=== PATIENT | male | born 1950 | race Caucasian/White ===

== ENCOUNTER 2018-12-22 19:16 | Inpatient (IN) | payer MEDICARE, OTHER ==
[2018-12-22 20:28] LABS: Amphetamine Screen,Urine Not Detected (NotDetected); Barbiturate Screen,Urine Not Detected (NotDetected); Benzodiazepines Screen,Urine Not Detected (NotDetected); Cocaine Screen,Urine Not Detected (NotDetected); Methadone Screen, Urine Not Detected (NotDetected); Opiate Screen,Urine Not Detected (NotDetected); Oxycodone Screen, Urine Not Detected (NotDetected); Phencyclidine Screen,Urine Not Detected (NotDetected); Tricyclic Antidepressant,Urine Not Detected (NotDetected); Urn Cannabinoid Scrn Not Detected (NotDetected)
[2018-12-22 20:39] LABS: Appearance,Urine Clear (Clear); Bilirubin,Urine Negative (Negative); Blood,Urine Small (Negative); Color,Urine Light Yellow; Glucose,Urine (UA) Negative (Negative); Ketones,Urine Negative (Negative); Leukocyte Esterase,Urine Negative (Negative); Nitrite,Urine Negative (Negative); Protein,Urine Negative (Negative); RBC,Urine 1 /hpf (0-5); Specific Gravity,Urine 1.004 (1.001-1.035); Urobilinogen,Urine <2.0 mg/dL (<2.0); WBC,Urine <1 /hpf (0-5)
[2018-12-22 20:49] LABS: Basophils % (A) 0 %; Eosinophils % (A) 1 %; Lymphocytes # (A) 3.1 k/uL (1.0-4.8); Lymphocytes % (A) 45 %; MCH 31.1 pg (25.0-35.0); MCHC 35.4 g/dL (31.0-37.0); Mean Platelet Volume 5.9; Monocytes # (A) 0.5 k/uL (0-1.0); Monocytes % (A) 7 %; Neutrophils # (A) 3.1 k/uL (1.3-7.7); Neutrophils % (A) 45 %; Platelet Count 123 k/uL (150-450); RBC 5.46 m/uL (4.30-5.90); RDW 13.5 % (11.5-15.5)
[2018-12-22 21:02] LABS: ALT 53 U/L (21-72); AST 83 U/L (17-59); Acetaminophen <10.0 ug/mL; African American GFR (CKD) >90 (>60 ml/min/1.73 sqM); Albumin 4.4 g/dL (3.5-5.0); Alkaline Phosphatase 96 U/L (38-126); Anion Gap 11 mmol/L; Blood Urea Nitrogen 13 mg/dL (9-20); Calcium 9.3 mg/dL (8.4-10.2); Carbon Dioxide 30 mmol/L (22-30); Chloride 106 mmol/L (98-107); Glucose 111 mg/dL (74-99); Potassium 4.2 mmol/L (3.5-5.1); Salicylate <1.0 mg/dL; Sodium 147 mmol/L (137-145); Total Bilirubin 0.6 mg/dL (0.2-1.3)
[2018-12-22 21:05] LABS: Alcohol 284 mg/dL
[2018-12-22] MEDS ORDERED: NALOXONE 0.4 MG/ML 1 ML VIAL IV PRN (21:38)
--- NOTE | 2018-12-22 21:38 | ED ---
General Adult HPI - General Chief complaint: Psychiatric Symptoms Stated complaint: Mental Health Time Seen by Provider: 12/22/18 19:20 Source: patient Mode of arrival: ambulatory - History of Present Illness Initial comments: The patient is a 68-year-old male who presents to the emergency room with suicidal ideations and alcohol intoxication. The patient reports that he drinks approximately 15 beers per day and has for the past year. He also reports to long standing depression with suicidal ideations. Did state that he had a suicide attempt in 2013. He should be on Cymbalta however has not taken his medications in several years. He has not followed up with a primary care doctor or seen a therapist. His friends became concerned and brought him into the emergency department. They state that human the patient isn't drinking that he is suicidal. He denies any other substance abuse. Does smoke tobacco. Denies any suicide attempts at this time. There are no other alleviating, precipitating or modifying factors - Related Data Home Medications Medication Instructions Recorded Confirmed No Known Home Medications 12/22/18 12/24/18 Allergies Allergy/AdvReac Type Severity Reaction Status Date / Time aspirin Allergy Rash/Hives Verified 12/24/18 21:31 NSAIDS (Non-Steroidal Allergy Anaphylaxis Verified 12/24/18 21:31 Anti-Inflamma Review of Systems ROS Statement: Those systems with pertinent positive or pertinent negative responses have been documented in the HPI. ROS Other: All systems not noted in ROS Statement are negative. Past Medical History Past Medical History: No Reported History History of Any Multi-Drug Resistant Organisms: None Reported Past Surgical History: No Surgical Hx Reported Past Psychological History: Anxiety, Bipolar, Depression Smoking Status: Never smoker Past Alcohol Use History: Abuse, Daily Past Drug Use History: None Reported - Past Family History Father Family Medical History: Liver Disease General Exam General appearance: alert, in no apparent distress, appears intoxicated Head exam: Present: atraumatic, normocephalic, normal inspection Eye exam: Present: normal appearance, PERRL, EOMI. Absent: scleral icterus, conjunctival injection, periorbital swelling ENT exam: Present: normal exam, mucous membranes moist Neck exam: Present: normal inspection. Absent: tenderness, meningismus, lymphadenopathy Respiratory exam: Present: normal lung sounds bilaterally. Absent: respiratory distress, wheezes, rales, rhonchi, stridor Cardiovascular Exam: Present: normal rhythm, tachycardia, normal heart sounds. Absent: systolic murmur, diastolic murmur, rubs, gallop, clicks GI/Abdominal exam: Present: soft, normal bowel sounds. Absent: distended, tenderness, guarding, rebound, rigid Extremities exam: Present: normal inspection, full ROM, normal capillary refill. Absent: tenderness, pedal edema, joint swelling, calf tenderness Back exam: Present: normal inspection Neurological exam: Present: alert, oriented X3, CN II-XII intact Psychiatric exam: Present: depressed, suicidal ideation Skin exam: Present: warm, dry, intact, normal color. Absent: rash Course Vital Signs 12/22/18 19:19 Temperature 98.1 F Pulse Rate 105 H Respiratory 18 Rate Blood Pressure 141/87 O2 Sat by Pulse 96 Oximetry Medical Decision Making - Medical Decision Making Upon arrival the patient was placed into room 12. A thorough history and physical exam is performed. I did recommend laboratory studies. CMP shows a sodium of 147. Small blood in the urine. Blood alcohol is 284. Because of the patient's markedly elevated blood alcohol level I did recommend hospital admission for to the patient did agree. The patient will be admitted sound physicians group. I will consult psychiatry to see the patient. The patient remained in stable condition was transported for - Lab Data Result diagrams: 12/24/18 06:18 12/24/18 06:18 Lab Results 12/22/18 12/22/18 12/22/18 Range/Units 19:55 20:21 20:21 WBC 7.0 (3.8-10.6) k/uL RBC 5.46 (4.30-5.90) m/uL Hgb 17.0 (13.0-17.5) gm/dL Hct 48.0 (39.0-53.0) % MCV 88.0 (80.0-100.0) fL MCH 31.1 (25.0-35.0) pg MCHC 35.4 (31.0-37.0) g/dL RDW 13.5 (11.5-15.5) % Plt Count 123 L (150-450) k/uL Neutrophils % 45 % Lymphocytes % 45 % Monocytes % 7 % Eosinophils % 1 % Basophils % 0 % Neutrophils # 3.1 (1.3-7.7) k/uL Lymphocytes # 3.1 (1.0-4.8) k/uL Monocytes # 0.5 (0-1.0) k/uL Eosinophils # 0.0 (0-0.7) k/uL Basophils # 0.0 (0-0.2) k/uL Sodium 147 H (137-145) mmol/L Potassium 4.2 (3.5-5.1) mmol/L Chloride 106 (98-107) mmol/L Carbon Dioxide 30 (22-30) mmol/L Anion Gap 11 mmol/L BUN 13 (9-20) mg/dL Creatinine 0.78 (0.66-1.25) mg/dL Est GFR (CKD-EPI)AfAm >90 (>60 ml/min/1.73 sqM) Est GFR (CKD-EPI)NonAf >90 (>60 ml/min/1.73 sqM) Glucose 111 H (74-99) mg/dL Calcium 9.3 (8.4-10.2) mg/dL Total Bilirubin 0.6 (0.2-1.3) mg/dL AST 83 H (17-59) U/L ALT 53 (21-72) U/L Alkaline Phosphatase 96 (38-126) U/L Total Protein 8.0 (6.3-8.2) g/dL Albumin 4.4 (3.5-5.0) g/dL Urine Color Light Yellow Urine Appearance Clear (Clear) Urine pH 7.0 (5.0-8.0) Ur Specific [place] 1.004 (1.001-1.035) Urine Protein Negative (Negative) Urine Glucose (UA) Negative (Negative) Urine Ketones Negative (Negative) Urine Blood Small H (Negative) Urine Nitrite Negative (Negative) Urine Bilirubin Negative (Negative) Urine Urobilinogen <2.0 (<2.0) mg/dL Ur Leukocyte Esterase Negative (Negative) Urine RBC 1 (0-5) /hpf Urine WBC <1 (0-5) /hpf Salicylates <1.0 mg/dL Urine Opiates Screen Not Detected (NotDetected) Ur Oxycodone Screen Not Detected (NotDetected) Urine Methadone Screen Not Detected (NotDetected) Ur Propoxyphene Screen Not Detected (NotDetected) Acetaminophen <10.0 ug/mL Ur Barbiturates Screen Not Detected (NotDetected) U Tricyclic Antidepress Not Detected (NotDetected) Ur Phencyclidine Scrn Not Detected (NotDetected) Ur Amphetamines Screen Not Detected (NotDetected) U Methamphetamines Scrn Not Detected (NotDetected) U Benzodiazepines Scrn Not Detected (NotDetected) Urine Cocaine Screen Not Detected (NotDetected) U Marijuana (THC) Screen Not Detected (NotDetected) Serum Alcohol 284 H* mg/dL 12/23/18 12/23/18 Range/Units 06:00 06:00 WBC 5.1 (3.8-10.6) k/uL RBC 4.95 (4.30-5.90) m/uL Hgb 15.1 (13.0-17.5) gm/dL Hct 45.1 (39.0-53.0) % MCV 91.0 (80.0-100.0) fL MCH 30.5 (25.0-35.0) pg MCHC 33.6 (31.0-37.0) g/dL RDW 13.7 (11.5-15.5) % Plt Count 105 L (150-450) k/uL Neutrophils % 49 % Lymphocytes % 40 % Monocytes % 7 % Eosinophils % 1 % Basophils % 0 % Neutrophils # 2.5 (1.3-7.7) k/uL Lymphocytes # 2.1 (1.0-4.8) k/uL Monocytes # 0.4 (0-1.0) k/uL Eosinophils # 0.0 (0-0.7) k/uL Basophils # 0.0 (0-0.2) k/uL Sodium 144 (137-145) mmol/L Potassium 4.6 (3.5-5.1) mmol/L Chloride 106 (98-107) mmol/L Carbon Dioxide 30 (22-30) mmol/L Anion Gap 8 mmol/L BUN 15 (9-20) mg/dL Creatinine 0.88 (0.66-1.25) mg/dL Est GFR (CKD-EPI)AfAm >90 (>60 ml/min/1.73 sqM) Est GFR (CKD-EPI)NonAf 88 (>60 ml/min/1.73 sqM) Glucose 91 (74-99) mg/dL Calcium 8.4 (8.4-10.2) mg/dL Total Bilirubin (0.2-1.3) mg/dL AST (17-59) U/L ALT (21-72) U/L Alkaline Phosphatase (38-126) U/L Total Protein (6.3-8.2) g/dL Albumin (3.5-5.0) g/dL Urine Color Urine Appearance (Clear) Urine pH (5.0-8.0) Ur Specific [place] (1.001-1.035) Urine Protein (Negative) Urine Glucose (UA) (Negative) Urine Ketones (Negative) Urine Blood (Negative) Urine Nitrite (Negative) Urine Bilirubin (Negative) Urine Urobilinogen (<2.0) mg/dL Ur Leukocyte Esterase (Negative) Urine RBC (0-5) /hpf Urine WBC (0-5) /hpf Salicylates mg/dL Urine Opiates Screen (NotDetected) Ur Oxycodone Screen (NotDetected) Urine Methadone Screen (NotDetected) Ur Propoxyphene Screen (NotDetected) Acetaminophen ug/mL Ur Barbiturates Screen (NotDetected) U Tricyclic Antidepress (NotDetected) Ur Phencyclidine Scrn (NotDetected) Ur Amphetamines Screen (NotDetected) U Methamphetamines Scrn (NotDetected) U Benzodiazepines Scrn (NotDetected) Urine Cocaine Screen (NotDetected) U Marijuana (THC) Screen (NotDetected) Serum Alcohol 71 mg/dL Disposition Clinical Impression: Depression, Suicidal ideation, Alcohol intoxication Disposition: ADMITTED IP TO THIS [facility] Condition: Stable Is patient prescribed a controlled substance at d/c from ED?: No Decision to Admit Reason: Admit from EC Decision Date: 12/22/18 Decision Time: 21:38
[2018-12-22] MEDS ORDERED: THIAMINE 100 MG/ML 2 ML VIAL IM STA (21:42)
[2018-12-22] MEDS ORDERED: LORazepam 2 MG/ML INJ IV PRN ×2 (21:42)
[2018-12-22] MEDS ORDERED: ACETAMINOPHEN TAB 325 MG TAB PO STA (22:12)
[2018-12-22] MEDS: SODIUM CHLORIDE 0.9% 1,000 ML IV SCH (22:20)
[2018-12-22] MEDS: LORazepam 2 MG/ML INJ IV PRN (22:38)
--- NOTE | 2018-12-23 00:10 | P.HPIM ---
History of Present Illness H&P Date: 12/22/18 The patient is a 68-year-old male with a past medical history of depression and anxiety, history of chronic alcoholism with episodes of remission in sobriety recently began drinking approximately a week ago after his latest period of remission lasting approximately 5 months. The patient reports that he's been drinking about 24 beers daily over the last several days. The patient reports previous suicide attempt in 2013 where he slit his wrists but was found by a friend. The patient reports previously being well-controlled on his SSRI Paxil and was taking 20 mg daily up until a year ago. The patient reports previously drinking 2/5 of vodka but has not drank any hard liquor since his most recent relapse. The patient was apparently brought here by his friends as a was concerned about his behavior, Apparently the patient has not been sleeping well on sporadically cut all of his here off today. Patient has no specific precipitating or alleviating factors to his current presentation. He reports that he was recently at his AA meeting a couple days ago. Patient reports history of alcohol withdrawal or he becomes increasingly anxious tremulous, he denies any history of withdrawal seizures. The patient also complains of a history of constipation and reports to have a bowel movement every 4 days. The patient denies any specific plan for suicide and is denying any active suicidal ideation to me. In the ER the patient had a comprehensive workup serum alcohol level was 284, platelets were 123, serum sodium 147. The patient was given thiamine and IV fluids and recommended for admission for acute alcohol intoxication Review of Systems pertinent positives per HPI all other review of small is otherwise negative Past Medical History Past Medical History: No Reported History History of Any Multi-Drug Resistant Organisms: None Reported Past Surgical History: No Surgical Hx Reported Past Psychological History: Anxiety, Bipolar, Depression Smoking Status: Never smoker Past Alcohol Use History: Abuse, Daily Past Drug Use History: None Reported - Past Family History Father Family Medical History: Liver Disease Medications and Allergies Home Medications Medication Instructions Recorded Confirmed Type No Known Home Medications 12/22/18 12/22/18 History Allergies Allergy/AdvReac Type Severity Reaction Status Date / Time NSAIDS (Non-Steroidal Allergy Anaphylaxis Verified 12/22/18 20:06 Anti-Inflamma Physical Exam Vitals: Vital Signs Temp Pulse Pulse Resp BP BP Pulse Ox 12/22/18 22:35 98.0 F 98 15 138/54 98 12/22/18 19:19 98.1 F 105 H 18 141/87 96 Intake and Output 12/22/18 12/22/18 12/23/18 14:59 22:59 06:59 Other: Weight 73.028 kg Constitutional: No acute distress, conversant, pleasant Eyes: Anicteric sclerae, moist conjunctiva, no lid-lag, PERRLA ENMT: NC/AT,Oropharynx clear, no erythema, exudates Neck:Supple, FROM, no masses, or JVD, No carotid bruits; No thyromegaly Lungs: Clear to auscultation, Clear to percussion, Normal respiratory effort, no accessory muscle use Cardiovascular: Heart regular in rate and rhythm, No murmurs, gallops, or rubs no peripheral edema Abdominal: Soft Nontender, nom distended, no guarding, no rebound or rigidity, Normoactive bowel sounds No hepatomegaly, No splenomegaly, No palpable mass No abdominal wall hernia noted Skin: Normal temperature, tone, texture, turgor, No induration No subcutaneous nodules, No rash, lesions, No ulcers Extremities:No digital cyanosis No clubbing, Pedal pulses intact and symmetrical Radial pulses intact and symmetrical Normal gait and station, No calf tenderness Psychiatric: Alert and oriented to person, place and time, flat affect, tangential speech Neuro: Muscles Strength 5/5 in all 4 extremities, Sensation to light touch grossly present throughout, Cranial nerves II-XII grossly intact. No focal sensory deficits Results CBC & Chem 7: 12/22/18 20:21 12/22/18 20:21 Labs: Abnormal Lab Results - Last 24 Hours (Table) 12/22/18 12/22/18 12/22/18 Range/Units 19:55 20:21 20:21 Plt Count 123 L (150-450) k/uL Sodium 147 H (137-145) mmol/L Glucose 111 H (74-99) mg/dL AST 83 H (17-59) U/L Urine Blood Small H (Negative) Serum Alcohol 284 H* mg/dL Thrombosis Risk Factor Assmnt - Choose All That Apply Each Risk Factor Represents 2 Points: Age 61-74 years Thrombosis Risk Factor Assessment Total Risk Factor Score: 2 Thrombosis Risk Factor Assessment Level: Low Risk Assessment and Plan (1) Alcohol dependence with acute alcoholic intoxication Current Visit: Yes Status: Acute Code(s): F10.229 - ALCOHOL DEPENDENCE WITH INTOXICATION, UNSPECIFIED SNOMED Code(s): 556729743 (2) Depression Current Visit: Yes Status: Acute Code(s): F32.9 - MAJOR DEPRESSIVE DISORDER, SINGLE EPISODE, UNSPECIFIED SNOMED Code(s): 42019387 (3) Suicidal ideation Current Visit: Yes Status: Acute Code(s): R45.851 - SUICIDAL IDEATIONS SNOMED Code(s): 9093814 (4) Anxiety Current Visit: Yes Status: Acute Code(s): F41.9 - ANXIETY DISORDER, UNSPECIFIED SNOMED Code(s): 87335257 (5) Thrombocytopenia Current Visit: Yes Status: Acute Code(s): D69.6 - THROMBOCYTOPENIA, UNSPECIFIED SNOMED Code(s): 737825454 (6) Constipation Current Visit: Yes Status: Acute Code(s): K59.00 - CONSTIPATION, UNSPECIFIED SNOMED Code(s): 39373740 Plan: Patient is placed on observation anticipate a less than 2 midnight stay with alcohol intoxication the setting of recent relapse into chronic alcoholism, presented with a serum alcohol level of 291. The patient is placed on telemetry with concern for impending withdrawal, She is placed on symptom triggered CIWA withdrawal protocol with Ativan PRN, continued on thiamine. From the ER there is documentation about suicidal ideation however the patient is denying this to me, psych consultation has been requested from the ER. The patient started on MiraLAX for constipation, he is noted to have thrombocytopenia which will monitor. We'll continue to follow his clinical course. CODE STATUS: Full code Discussed plan of care with: Patient Anticipated discharge: 1-[address]: Home versus psychiatric unit Prophylaxis: SCDs and Protonix Time with Patient: Greater than 30
[2018-12-23] MEDS: LORazepam 2 MG/ML INJ IV PRN ×5 (01:10→21:32)
[2018-12-23 07:14] LABS: Basophils % (A) 0 %; Eosinophils % (A) 1 %; HCT 45.1 % (39.0-53.0); HGB 15.1 gm/dL (13.0-17.5); Lymphocytes # (A) 2.1 k/uL (1.0-4.8); Lymphocytes % (A) 40 %; MCH 30.5 pg (25.0-35.0); MCHC 33.6 g/dL (31.0-37.0); Mean Platelet Volume 6.4; Monocytes # (A) 0.4 k/uL (0-1.0); Monocytes % (A) 7 %; Neutrophils # (A) 2.5 k/uL (1.3-7.7); Neutrophils % (A) 49 %; Platelet Count 105 k/uL (150-450); RBC 4.95 m/uL (4.30-5.90); RDW 13.7 % (11.5-15.5); WBC 5.1 k/uL (3.8-10.6)
[2018-12-23 07:25] LABS: African American GFR (CKD) >90 (>60 ml/min/1.73 sqM); Alcohol 71 mg/dL; Anion Gap 8 mmol/L; Blood Urea Nitrogen 15 mg/dL (9-20); Calcium 8.4 mg/dL (8.4-10.2); Carbon Dioxide 30 mmol/L (22-30); Chloride 106 mmol/L (98-107); Glucose 91 mg/dL (74-99); Potassium 4.6 mmol/L (3.5-5.1); Sodium 144 mmol/L (137-145)
[2018-12-23] MEDS: PANTOPRAZOLE 40 MG TABLET PO SCH (07:42)
[2018-12-23] MEDS: SODIUM CHLORIDE 0.9% 1,000 ML IV SCH ×2 (07:42→16:49)
[2018-12-23] MEDS: POLYETHYLENE GLYCOL 3350 17 GM POWD.PACK PO SCH (07:42)
[2018-12-23] MEDS: THIAMINE 100 MG TAB PO SCH (15:42)
--- NOTE | 2018-12-23 16:22 | P.PN ---
Subjective Progress Note Date: 12/23/18 Principal diagnosis: Alcohol intoxication Patient is a 68-year-old male to past medical history of alcoholism, anxiety and depression, and alcoholic liver disease who presented to the emergency department with his friends due to concerns for depression and alcohol intoxication. In the emergency department he underwent an extensive evaluation. On arrival he was tachycardic with a pulse of 105 but vital signs were otherwise within normal limits. Initial laboratory analysis showed an elevated AST at 83, mild dehydration with sodium of 147, and thrombocytopenia platelets of 123. He was noted to have a blood alcohol level of 284. He was started on IV fluids and was admitted for further monitoring and psychiatric evaluation. He was started on CIWA protocol. He was already requiring doses of Ativan by the morning of 12/23. Patient seen and examined at bedside. He reports that he has been struggling with alcohol addiction for 25 years. He reports that he fell off the wagon approximately 5 months ago. He has been drinking 15-20 beers daily. He is having some difficulty concentrating and fidgeting however he reports a hisotry of severe EOTH withdrawal resulting in confusion. Denies seizures. He reports that he had been planning on going to [place] and not sure how he ended up at the hospital. Objective - Vital Signs Vital signs: Vital Signs Temp 97.9 F 12/23/18 15:31 Pulse 88 12/23/18 15:31 Resp 15 12/23/18 15:31 BP 134/68 12/23/18 15:31 Pulse Ox 95 12/23/18 15:31 Intake & Output 12/22/18 12/23/18 12/23/18 18:59 06:59 18:59 Intake Total 800 Balance 800 Weight 73.028 kg Intake: IV 800 Sodium Chloride 0.9% 1, 800 000 ml @ 100 mls/hr IV . Q10H [facility] Rx#:[id number] Other: Voiding Method Toilet - Exam General: non toxic, mild distress, appears at stated age, disheveled Derm: warm, dry Head: atraumatic, normocephalic, symmetric Eyes: EOMI, no lid lag, anicteric sclera Mouth: no lip lesion, mucus membranes moist Cardiovascular: S1S2 reg, no murmur, positive posterior tibial pulse bilateral, Lungs: CTA bilateral, no rhonchi, no rales , no accessory muscle use Abdominal: soft, nontender to palpation, no guarding, no appreciable organomegaly Ext: no gross muscle atrophy, no edema, no contractures Neuro: CN II-XI grossly intact, no focal neuro deficits, no tremors, no asterixis Psych: Alert, oriented, appropriate affect , slowed thinking with difficulty concentrating - Labs CBC & Chem 7: 12/23/18 06:00 12/23/18 06:00 Labs: Abnormal Lab Results - Last 24 Hours (Table) 12/22/18 12/22/18 12/22/18 Range/Units 19:55 20:21 20:21 Plt Count 123 L (150-450) k/uL Sodium 147 H (137-145) mmol/L Glucose 111 H (74-99) mg/dL AST 83 H (17-59) U/L Urine Blood Small H (Negative) Serum Alcohol 284 H* mg/dL 12/23/18 Range/Units 06:00 Plt Count 105 L (150-450) k/uL Sodium (137-145) mmol/L Glucose (74-99) mg/dL AST (17-59) U/L Urine Blood (Negative) Serum Alcohol mg/dL Assessment and Plan Assessment: Alcohol withdrawal -With an acute alcohol intoxication on arrival -Continue with the eye WA protocol -And scheduled Librium -Thiamine, folic acid supplementation -Social work consult Depression and anxiety -At this time patient denies suicidal ideation. He does report feelings of hopelessness. He states that he was doing much better when he was on Paxil but took himself off of Paxil that's when he began drinking again. -Continue with food safety coordinator and await psychiatry recs Thrombocytopenia with mild AST elevation -Suspect secondary to chronic alcohol use -Outpatient evaluation once away from alcohol Mild dehydration with hypernatremia -IV fluids -Encourage oral fluid intake DVT prophylaxis: SCDs Discussed with: patient, nursing Anticipated discharge: 2-[address]: home vs rehab A total of 25 minutes was spent on the care of this complex patient more than 50% of the time was spent in counseling and care coordination.
[2018-12-23] MEDS: MULTIVITAMINS, THERA 1 EACH TAB PO SCH (16:48)
[2018-12-23] MEDS: FOLIC ACID 1 MG TAB PO SCH (16:48)
[2018-12-24] MEDS: LORazepam 2 MG/ML INJ IV PRN ×2 (00:41→02:43)
[2018-12-24] MEDS: SODIUM CHLORIDE 0.9% 1,000 ML IV SCH (03:35)
[2018-12-24 07:42] LABS: HGB 14.2 gm/dL (13.0-17.5); MCHC 33.8 g/dL (31.0-37.0); MCV 91.6 fL (80.0-100.0); Mean Platelet Volume 6.2; RBC 4.58 m/uL (4.30-5.90); RDW 13.6 % (11.5-15.5); WBC 5.5 k/uL (3.8-10.6)
[2018-12-24] MEDS: FOLIC ACID 1 MG TAB PO SCH (07:46)
[2018-12-24] MEDS: PANTOPRAZOLE 40 MG TABLET PO SCH (07:46)
[2018-12-24] MEDS: MULTIVITAMINS, THERA 1 EACH TAB PO SCH (07:46)
[2018-12-24] MEDS: THIAMINE 100 MG TAB PO SCH (07:46)
[2018-12-24 07:49] VITALS: BP 131/77; PULSE 83; RESP 16; TEMP 97.5
[2018-12-24 07:51] LABS: ALT 45 U/L (21-72); AST 60 U/L (17-59); African American GFR (CKD) >90 (>60 ml/min/1.73 sqM); Albumin 3.3 g/dL (3.5-5.0); Alkaline Phosphatase 74 U/L (38-126); Anion Gap 4 mmol/L; Blood Urea Nitrogen 15 mg/dL (9-20); Calcium 8.7 mg/dL (8.4-10.2); Carbon Dioxide 30 mmol/L (22-30); Chloride 107 mmol/L (98-107); Glucose 102 mg/dL (74-99); Potassium 4.5 mmol/L (3.5-5.1); Sodium 141 mmol/L (137-145); Total Protein 6.6 g/dL (6.3-8.2)
[2018-12-24] MEDS: POLYETHYLENE GLYCOL 3350 17 GM POWD.PACK PO SCH (08:14)
[2018-12-24 08:37] LABS: Platelet Count 85 k/uL (150-450)
--- NOTE | 2018-12-24 20:07 | P.DS ---
Providers Date of admission: 12/23/18 13:36 Expected date of discharge: 12/24/18 Attending physician: Venancio Ruiz MD Consults: 12/22/18 21:40 Consult Physician Urgent Consulting Provider: Saran Bailey Consult Reason/Comments: acute suicidal ideations, depression Do you want consulting provider notified?: Yes Primary care physician: Yoli Samayoa Hospital Course: Discharge Diagnosis: Etoh withdrawal ETOH intoxication and abuse Thrombocytopenia Elevated liver enzymes Depression and anxiety Hypernatremia Dehydration Hospital Course: Patient is a 68-year-old male to past medical history of alcoholism, anxiety and depression, and alcoholic liver disease who presented to the emergency department with his friends due to concerns for depression and alcohol intoxication. In the emergency department he underwent an extensive evaluation. On arrival he was tachycardic with a pulse of 105 but vital signs were otherwise within normal limits. Initial laboratory analysis showed an elevated AST at 83, mild dehydration with sodium of 147, and thrombocytopenia platelets of 123. He was noted to have a blood alcohol level of 284. He was started on IV fluids and was admitted for further monitoring and psychiatric evaluation. He was started on CIWA protocol. He was already requiring doses of Ativan by the morning of 12/23. He has started on Librium. He had a rapid improvement in his alcohol withdrawal symptoms. He was seen by psychiatry and did not warrant inpatient psychiatric admission. On the morning of CIWA scale had dropped to 4. His hypernatremia and dehydration had resolved. In his liver enzymes had stabilized. He was requesting to be discharged home. He reports that he has friends are attempting to get him in to [facility] he was supposed to have an intake on either Monday or Monday. Initially had some confusion on the date but this was quickly improved. He did appear to be clear thinking was determined stable for discharge home. We attempted to contact friends for a ride, however his phone that her he had . He was provided a cab ride home. He was asked not to drive if he had received Librium earlier in the day. Patient seen and examined at bedside. He denies any difficulties with withdrawal symptoms. He denies any nausea, vomiting, shaking, tremors, or tactile sensations. He reports that his friends are in and get him in to [facility] either today or tomorrow. He reports that they called on Saturday. Patient initially was confused and thought that the day was Monday but then quickly reoriented to it being Monday. He reports that he has good support from his AA sponsor some other friends. He feels as though he is ready to be discharged home. Per nursing he was asking them if he was petitioned which he is not. I told him his been cleared by psychiatry. Patient appears to be clear thinking and medically is stable. He is asking to be discharge and he has been cleared by psychiatry. Patient discharge in stable condition. Vital signs reviewed and stable. General: non toxic, no distress, appears at stated age Derm: warm, dry Head: atraumatic, normocephalic, symmetric Eyes: EOMI, no lid lag, anicteric sclera Mouth: no lip lesion, mucus membranes moist Cardiovascular: S1S2 reg, no murmur, positive posterior tibial pulse bilateral, Lungs: CTA bilateral, no rhonchi, no rales , no accessory muscle use Abdominal: soft, nontender to palpation, no guarding, no appreciable organomegaly Ext: no gross muscle atrophy, no edema, no contractures Neuro: CN II-XI grossly intact, no focal neuro deficits Psych: Alert, oriented to person, hospital and situation- did not verify year, anxious appearing A total of 25 minutes of time were spent preparing this complex discharge summary . Patient Condition at Discharge: Stable Plan - Discharge Summary Discharge Rx Participant: Yes New Discharge Prescriptions: Continue No Known Home Medications Discharge Medication List No Known Home Medications 12/22/18 [History] Follow up Appointment(s)/Referral(s): Yoli Samayoa MD [Primary Care Provider] - 12/26/18 1:15 pm Patient Instructions/Handouts: Abuse of Alcohol (DC) Activity/Diet/Wound Care/Special Instructions: Activity: as tolerated Diet: regular Special Instructions: Abstain from alcohol Recommend repeat CBC in 2-4 weeks to follow-up on low platelets. Discharge Disposition: HOME SELF-CARE
== END 2018-12-24 11:57 | disposition home or self-care (01) | DRG 897 ==
LOC: EC 19:16 → 4SSUR 21:42 → OBSVTOIN 12-23 13:36
PROVIDERS: ADMIT Family Medicine; ATTEND Family Medicine
DX: F10.129 Alcohol abuse with intoxication, unspecified (principal); E87.0 Hyperosmolality and hypernatremia; R45.851 Suicidal ideations; D69.6 Thrombocytopenia, unspecified; E86.0 Dehydration; F17.200 Nicotine dependence, unspecified, uncomplicated; F41.9 Anxiety disorder, unspecified; K59.00 Constipation, unspecified; F32.9 Major depressive disorder, single episode, unspecified; K70.9 Alcoholic liver disease, unspecified; Z91.5 Personal history of self-harm; Z88.6 Allergy status to analgesic agent; Z83.79 Family history of other diseases of the digestive system; Y90.8 Blood alcohol level of 240 mg/100 ml or more
CPT/HCPCS: 36415; 80048; 80053; 80306; 80320; 80329; 81001; 82075; 83520; 85025; 85027; 96372; 99285

== ENCOUNTER 2018-12-24 20:18 | Inpatient (IN) | payer MEDICARE ==
--- NOTE | 2018-12-24 21:18 | ED ---
Psych HPI - General Chief Complaint: Psychiatric Symptoms Stated Complaint: Mental Health Time Seen by Provider: 12/24/18 21:03 Source: patient, police Mode of arrival: ambulatory - History of Present Illness Initial Comments: This patient is a 68-year-old man who presents with complaint that he has been feeling depressed and having thoughts of drowning himself in the river. Patient complains of having years of long-standing depression despite taking Paxil for about 7 years. He states that more more he is thinking of ending his life. Patient denies homicidal ideation. No hallucinations. MD Complaint: suicidal ideation, feels depressed -: year(s) Associated Psychiatric Symptoms: depression, suicidal ideation History of same: Yes Quality: constant Improves With: none Worsens With: none Associated Symptoms: denies other symptoms - Related Data Home Medications Medication Instructions Recorded Confirmed No Known Home Medications 12/22/18 12/24/18 Allergies Allergy/AdvReac Type Severity Reaction Status Date / Time aspirin Allergy Rash/Hives Verified 12/24/18 21:31 NSAIDS (Non-Steroidal Allergy Anaphylaxis Verified 12/24/18 21:31 Anti-Inflamma Review of Systems ROS Statement: Those systems with pertinent positive or pertinent negative responses have been documented in the HPI. ROS Other: All systems not noted in ROS Statement are negative. Constitutional: Denies: fever Respiratory: Denies: cough, dyspnea Cardiovascular: Denies: chest pain, palpitations Gastrointestinal: Denies: abdominal pain, vomiting, diarrhea Genitourinary: Denies: dysuria, hematuria Musculoskeletal: Denies: back pain Neurological: Denies: headache Psychiatric: Reports: depression, suicidal thoughts. Denies: auditory hallucinations, visual hallucinations, homicidal thoughts Past Medical History Past Medical History: No Reported History History of Any Multi-Drug Resistant Organisms: None Reported Past Surgical History: No Surgical Hx Reported Past Psychological History: Anxiety, Bipolar, Depression Smoking Status: Never smoker Past Alcohol Use History: Abuse, Daily Past Drug Use History: None Reported - Past Family History Father Family Medical History: Liver Disease General Exam Limitations: no limitations General appearance: alert, in no apparent distress Head exam: Present: atraumatic, normocephalic Eye exam: Present: normal appearance. Absent: scleral icterus, conjunctival injection Respiratory exam: Present: normal lung sounds bilaterally. Absent: respiratory distress, wheezes, rales, rhonchi, stridor Cardiovascular Exam: Present: regular rate, normal rhythm, normal heart sounds. Absent: systolic murmur, diastolic murmur, rubs, gallop GI/Abdominal exam: Present: soft. Absent: tenderness, guarding Neurological exam: Present: alert, oriented X3, normal gait Psychiatric exam: Present: depressed, suicidal ideation. Absent: agitated, anxious, flat affect, manic, homicidal ideation Skin exam: Present: warm, dry, intact, normal color. Absent: rash Course Vital Signs 12/24/18 20:19 Temperature 97.9 F Pulse Rate 114 H Respiratory 20 Rate Blood Pressure 139/83 O2 Sat by Pulse 96 Oximetry Medical Decision Making - Lab Data Lab Results 12/24/18 Range/Units 20:40 Urine Opiates Screen Not Detected (NotDetected) Ur Oxycodone Screen Not Detected (NotDetected) Urine Methadone Screen Not Detected (NotDetected) Ur Propoxyphene Screen Not Detected (NotDetected) Ur Barbiturates Screen Not Detected (NotDetected) U Tricyclic Antidepress Not Detected (NotDetected) Ur Phencyclidine Scrn Not Detected (NotDetected) Ur Amphetamines Screen Not Detected (NotDetected) U Methamphetamines Scrn Not Detected (NotDetected) U Benzodiazepines Scrn Detected H (NotDetected) Urine Cocaine Screen Not Detected (NotDetected) U Marijuana (THC) Screen Not Detected (NotDetected) Disposition Clinical Impression: Depression, Suicidal ideation Disposition: ADMITTED IP TO THIS [facility] Condition: Fair
[2018-12-24 21:43] LABS: Amphetamine Screen,Urine Not Detected (NotDetected); Barbiturate Screen,Urine Not Detected (NotDetected); Benzodiazepines Screen,Urine Detected (NotDetected); Cocaine Screen,Urine Not Detected (NotDetected); Methadone Screen, Urine Not Detected (NotDetected); Opiate Screen,Urine Not Detected (NotDetected); Oxycodone Screen, Urine Not Detected (NotDetected); Phencyclidine Screen,Urine Not Detected (NotDetected); Tricyclic Antidepressant,Urine Not Detected (NotDetected); Urn Cannabinoid Scrn Not Detected (NotDetected)
[2018-12-24] MEDS ORDERED: MAG HYDROX/AL HYDROX/SIMETH 30 ML CUP PO PRN (23:39)
[2018-12-24] MEDS ORDERED: ZIPRASIDONE 20 MG VIAL IM PRN (23:39)
[2018-12-24] MEDS ORDERED: MAGNESIUM HYDROXIDE 2,400 MG/10 ML CUP PO PRN (23:39)
[2018-12-24] MEDS ORDERED: ACETAMINOPHEN TAB 325 MG TAB PO PRN (23:39)
[2018-12-24] MEDS ORDERED: LORazepam 2 MG/ML INJ IM PRN (23:40)
[2018-12-24 23:58] LABS: Appearance,Urine Clear (Clear); Bacteria,Urine Rare /hpf; Bilirubin,Urine Negative (Negative); Blood,Urine Moderate (Negative); Budding Yeast,Urine Rare /hpf; Color,Urine Yellow; Glucose,Urine (UA) Negative (Negative); Hyaline Casts,Urine 4 /lpf (0-2); Ketones,Urine Negative (Negative); Leukocyte Esterase,Urine Negative (Negative); Mucus,Urine Occasional /hpf; Nitrite,Urine Negative (Negative); PH, Urine 5.5 (5.0-8.0); Protein,Urine Trace (Negative); RBC,Urine 8 /hpf (0-5); Specific Gravity,Urine 1.016 (1.001-1.035); Urobilinogen,Urine <2.0 mg/dL (<2.0); WBC,Urine 2 /hpf (0-5)
[2018-12-25] MEDS: LORazepam 1 MG TAB PO PRN ×2 (00:24→20:56)
[2018-12-25 09:57] LABS: Basophils % (A) 1 %; Eosinophils # (A) 0.1 k/uL (0-0.7); Eosinophils % (A) 1 %; HCT 47.7 % (39.0-53.0); HGB 15.3 gm/dL (13.0-17.5); Lymphocytes # (A) 2.6 k/uL (1.0-4.8); Lymphocytes % (A) 41 %; MCH 30.4 pg (25.0-35.0); MCHC 32.1 g/dL (31.0-37.0); MCV 94.6 fL (80.0-100.0); Monocytes # (A) 0.4 k/uL (0-1.0); Monocytes % (A) 7 %; Neutrophils # (A) 3.1 k/uL (1.3-7.7); Neutrophils % (A) 49 %; Platelet Count 102 k/uL (150-450); RBC 5.04 m/uL (4.30-5.90); RDW 13.9 % (11.5-15.5); WBC 6.4 k/uL (3.8-10.6)
[2018-12-25 10:00] LABS: ALT 51 U/L (21-72); AST 64 U/L (17-59); African American GFR (CKD) >90 (>60 ml/min/1.73 sqM); Albumin 4.1 g/dL (3.5-5.0); Alkaline Phosphatase 98 U/L (38-126); Anion Gap 5 mmol/L; Blood Urea Nitrogen 17 mg/dL (9-20); Calcium 9.1 mg/dL (8.4-10.2); Carbon Dioxide 33 mmol/L (22-30); Chloride 102 mmol/L (98-107); Cholesterol 145 mg/dL (<200); Glucose 95 mg/dL (74-99); HDL Cholesterol 75 mg/dL (40-60); LDL Cholesterol,Calculated 44 mg/dL (0-99); Potassium 3.8 mmol/L (3.5-5.1); Sodium 140 mmol/L (137-145); Total Bilirubin 2.1 mg/dL (0.2-1.3); Total Protein 7.7 g/dL (6.3-8.2); Triglycerides 129 mg/dL (<150)
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
--- NOTE | 2018-12-25 15:23 | P.HPMEDMHU ---
History of Present Illness H&P Date: 12/25/18 Chief Complaint: Suicidal ideation Patient is a 68-year-old male past medical history of alcoholic hepatitis, chronic alcohol use, and depression who presented to the emergency department with complaints of suicidal ideation. Patient was recently hospitalized here and discharged home on 12/24 after an episode of alcohol intoxication with resulting withdrawal. He been seen by EPS at that point in time and adamantly denied suicidal ideation. He went home and started cutting his throat, chest, and wrists. He the represented to the ER. Patient seen and examined at bedside. He reports some right-sided neck pain. No nausea, no vomiting, no diarrhea. He denies any difficulty swallowing. He is feeling somewhat shaky and tremulous. He denies any headache, he denies any fidgety feeling. He denies any paresthesias. Review of Systems Pertinent positives and negatives as discussed in HPI, a complete review of systems was performed and all other systems are negative. Past Medical History Additional Past Medical History / Comment(s): Alcoholic hepatitis History of Any Multi-Drug Resistant Organisms: None Reported Past Surgical History: No Surgical Hx Reported Past Anesthesia/Blood Transfusion Reactions: No Reported Reaction Past Psychological History: Anxiety, Bipolar, Depression Smoking Status: Never smoker Past Alcohol Use History: Abuse, Daily Past Drug Use History: None Reported Additional History: Lives alone in his apartment, not working, no assistive de vices - Past Family History Father Family Medical History: Liver Disease Medications and Allergies Home Medications Medication Instructions Recorded Confirmed Type No Known Home Medications 12/22/18 12/24/18 History Allergies Allergy/AdvReac Type Severity Reaction Status Date / Time aspirin Allergy Rash/Hives Verified 12/24/18 21:31 NSAIDS (Non-Steroidal Allergy Anaphylaxis Verified 12/24/18 21:31 Anti-Inflamma Physical Exam Osteopathic Statement: *. No significant issues noted on an osteopathic stru ctural exam other than those noted in the History and Physical/Consult. Vitals: Vital Signs Temp Pulse Pulse Resp BP BP Pulse Ox 12/25/18 06:49 98.1 F 83 18 121/70 12/25/18 01:42 97.7 F 99 20 146/73 12/24/18 20:19 97.9 F 114 H 20 139/83 96 Intake and Output 12/25/18 12/25/18 12/25/18 06:59 14:59 22:59 Other: Weight 73.482 kg General: non toxic, no distress, appears at stated age, normal weight Derm: Laceration to neck, chest, bilateral wrist and hand without any warmth, significant erythema, or discharge no unusual rashes/lesions no unusual ecchymoses, warm, dry Head: atraumatic, normocephalic, symmetric Eyes: EOMI, no lid lag, anicteric sclera, pupils equal round reactive to light ENT: Nose and ears atraumatic, no thrush, no pharyngeal erythema Neck: No thyromegaly, no cervical lymphadenopathy, trachea midline, supple Mouth: no lip lesion, mucus membranes moist Cardiovascular: S1S2 reg, no murmur, positive posterior tibial pulse bilateral, no edema, capillary refill less than 2 seconds Lungs: CTA bilateral, no rhonchi, no rales , no accessory muscle use Abdominal: soft, nontender to palpation, no guarding, no appreciable organomegaly, normal bowel sounds Ext: no gross muscle atrophy, muscle strength 5 out of 5 in all 4 extremities grossly, no contractures, Neuro: CN II-XI grossly intact, light touch intact all 4 extremities, finger to nose within normal limits, mild astersix Psych: Alert, oriented, flat affect Cranial Nerve Examination - Cranial Nerves Cranial Nerve II- Optic: Intact Cranial Nerve III- Oculomotor: Intact Cranial Nerve IV- Trochlear: Intact Cranial Nerve V- Trigeminal: Intact Cranial Nerve - Abducens: Intact Cranial Nerve VII- Facial: Intact Cranial Nerve VIII- Auditory: Intact Cranial Nerve IX- Glossopharyngeal: Intact Cranial Nerve X- Vagus: Intact Cranial Nerve XI- Accessory: Intact Cranial Nerve XII- Hypoglossal: Intact Results CBC & Chem 7: 12/25/18 09:10 12/25/18 09:10 Labs: Abnormal Lab Results - Last 24 Hours (Table) 12/24/18 12/24/18 12/25/18 Range/Units 20:40 20:40 09:10 Plt Count 102 L (150-450) k/uL Carbon Dioxide (22-30) mmol/L Total Bilirubin (0.2-1.3) mg/dL AST (17-59) U/L HDL Cholesterol (40-60) mg/dL Urine Protein Trace H (Negative) Urine Blood Moderate H (Negative) Urine RBC 8 H (0-5) /hpf Urine Bacteria Rare H (None) /hpf Hyaline Casts 4 H (0-2) /lpf Urine Mucus Occasional H (None) /hpf Urine Yeast (Budding) Rare H (None) /hpf U Benzodiazepines Scrn Detected H (NotDetected) 12/25/18 Range/Units 09:10 Plt Count (150-450) k/uL Carbon Dioxide 33 H (22-30) mmol/L Total Bilirubin 2.1 H (0.2-1.3) mg/dL AST 64 H (17-59) U/L HDL Cholesterol 75 H (40-60) mg/dL Urine Protein (Negative) Urine Blood (Negative) Urine RBC (0-5) /hpf Urine Bacteria (None) /hpf Hyaline Casts (0-2) /lpf Urine Mucus (None) /hpf Urine Yeast (Budding) (None) /hpf U Benzodiazepines Scrn (NotDetected) Thrombosis Risk Factor Assmnt - Choose All That Apply Any of the Below Risk Factors Present?: No Each Risk Factor Represents 2 Points: Age 61-74 years Other congenital or acquired thrombophilia - If yes, enter type in comment: No Thrombosis Risk Factor Assessment Total Risk Factor Score: 2 Thrombosis Risk Factor Assessment Level: Low Risk Assessment and Plan Assessment: Multiple skin lacerations due to cutting -Bacitracin to lacerations on neck and chest wall twice daily -Nurse to notify us if appeared to be infected Alcohol abuse - Thiamine and folic acid - Ativan per psych Thrombocytopenia - follow CBC - due to ETOH use Transaminitis - due to ETOH use - improving - no need to recheck as inpatient Suicidal ideation - your psych management Thank you for allowing us to participate in the care of this patient. We will follow peripherally. Do not hesitate to contact us with questions. Someone can be reached from the [facility] hospitalist group at all hours of the day at [phone].
[2018-12-25 17:21] LABS: Hemoglobin A1C 4.7 % (4.0-6.0)
[2018-12-26] MEDS: VENLAFAXINE HCL ER 37.5 MG CAP PO SCH (08:41)
--- NOTE | 2018-12-26 09:25 | P.PN ---
Progress Note - Text Interval history: The patient is found in group he follows me to an interview room. He states his mood is still depressed he feels hopeless he still has thoughts of not wanting to be alive. He is worried that family won't respond if he reaches out. We reviewed the Effexor XR his questions were answered. He describes having difficulty sleeping at night although staff recorded he slept 7 hours. He states he would typically take the medicine when he is in a hospital or rehab. He has been on trazodone before we decided to try that medication again. He has been attending groups. He was able to eat breakfast this morning. Mental status exam: The patient is alert he is dressed in his own clothing eye contact is appropriate. He is pleasant cooperative. He reports a depressed and anxious mood with continued hopelessness thoughts. He continues to have thoughts of not wanting to be alive. He reports no homicidal ideation intent or plan. No auditory or visual hallucinations or any specific delusions. He demonstrates no tangential thinking loose associations or flight of ideas. He does not appear hypomanic or manic. He demonstrates no verbal or physical aggressiveness. He demonstrates no tremor related to alcohol withdrawal. Insight and judgment limited. Speech is fluent spontaneous nonpressured he is verbose. He is directable in speech. Plan: The patient will continue on the Effexor XR we will plan to titrate that during the course of his stay. We will add trazodone 50 mg at bedtime for sleep. He is encouraged to continue participating in the milieu. We will monitor him for safety. Vital signs reviewed.
[2018-12-26] MEDS: traZODone HCL 50 MG TAB PO SCH (20:42)
[2018-12-27] MEDS: VENLAFAXINE HCL ER 37.5 MG CAP PO SCH (08:42)
--- NOTE | 2018-12-27 10:02 | P.PN ---
Progress Note - Text Interval history: The patient is found in the hallway he follows me to an interview room. He states that his mood is a little better. He has been attending groups. We reviewed his psychotropic medications. We discussed titrating Effexor XR further he is agreeable. He discussed instituting naltrexone for his cravings of alcohol use and he is agreeable. He found the trazodone helpful last evening. Staff recorded he slept 6-7 hours. Appetite is stable. He states that he has been thinking about what he needs to change in order to remain sober. He is considering filing for divorce. He is encouraged to not make any big decisions at this time but to also consider alternatives to his previous behavior. Mental status exam: The patient is alert he is a thin male he stressors unclothing hygiene grooming adequate. Speech is fluent spontaneous nonpressured. He reports his mood is mildly improved. He continues to have some hopeless thoughts. He feels safe in the hospital. He reports no homicidal ideation intent or plan. He is endorsing no auditory or visual hallucinations or any specific delusions. There is no observed evidence of psychosis hypomania or mahad. He demonstrates no verbal or physical aggressiveness he demonstrates no tremors associated with alcohol withdrawal. Affect is constricted. Speech is verbose but he is directable. Plan: The patient will continue on his current psychotropic medication however we will titrate the Effexor XR to 75 mg daily, we'll add naltrexone 50 mg daily. We will monitor him for safety he is encouraged to continue participating in the milieu. Vital signs reviewed.
[2018-12-27] MEDS: NALTREXONE HCL 50 MG TAB PO SCH (10:08)
[2018-12-27] MEDS: traZODone HCL 50 MG TAB PO SCH (20:55)
[2018-12-28] MEDS: NALTREXONE HCL 50 MG TAB PO SCH (08:51)
[2018-12-28] MEDS: VENLAFAXINE HCL ER 75 MG CAP PO SCH (08:53)
--- NOTE | 2018-12-28 10:51 | P.PN ---
Progress Note - Text Interval history: The patient is found in group he follows me to an interview room. He indicates his mood is getting better. He did sleep last evening. He reports he felt quite sick with the naltrexone and does not wish to take it any longer. He indicates that he did take that in the past and had the same reaction previously. He has been attending groups staff report he has been quiet in groups. He had numerous questions regarding his medication today he discussed his alcohol use disorder and how it is impacting his family. He states he is encouraged sees back on an antidepressant as that will likely help him. 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 He does not wish to participate in inpatient chemical dependency treatment. We discussed a plan of having him go to AA meetings daily upon discharge. Mental status exam: The patient is a thin male appearing his stated age. He presents with adequate hygiene grooming. Eye contact is appropriate speech is fluent spontaneous nonpressured. He reports his mood is improving. He still has some hopelessness thinking. He feels safe here in the hospital in terms of suicidal ideation. He reports no homicidal ideation intent or plan. He reports no auditory or visual hallucinations or any specific delusions. There is no observed evidence of psychosis. He does not appear hypomanic or manic. Insight and judgment slowly improving. Plan: The patient will continue on the Effexor XR at 75 mg daily. We have just titrated that medication. We will discontinue the naltrexone as he is reporting intolerable side effects. We will continue the trazodone for insomnia. He is encouraged to continue participating in the milieu. Vital signs reviewed. There is no observable evidence of alcohol withdrawal.
[2018-12-28] MEDS: traZODone HCL 50 MG TAB PO SCH (21:30)
[2018-12-29] MEDS: VENLAFAXINE HCL ER 75 MG CAP PO SCH (09:31)
--- NOTE | 2018-12-29 17:40 | P.PN ---
Progress Note - Text Progress Note Date: 12/29/18 IDENTIFICATION DATA: 68-year-old male admitted to the mental health unit through the emergency room for suicidal ideation. INTERVAL HISTORY: Patient was seen today, He denies current suicidal or homicidal ideations. He says the medication has lifted him up and is happy that it is working well for him. No side effects reported. He reports good sleep with trazadone. He reports initially he was scared and now he is able to socialize well with his peers and attends most of his groups. He reports good concentration. MENTAL STATUS EXAMINATION: 68 year old male appears younger than his stated age in fair grooming and hygine. Is alert and oriented 4. Mood is reported as OK and affect is constricted. Speech and thought processes linear and goal directed. thought content is negative for suicidal or homicidal ideation. Denies auditory and visual hallucinations. insight and judgment are improving. ASSESSMENT Major depressive disorder recurrent severe without psychosis Alcohol use disorder PLAN: Effexor XR 37.5 mg daily for depressive and anxiety symptoms Trazadone 50mg for insomnia
[2018-12-29] MEDS: traZODone HCL 50 MG TAB PO SCH (21:09)
[2018-12-30] MEDS: VENLAFAXINE HCL ER 75 MG CAP PO SCH (09:10)
--- NOTE | 2018-12-30 14:03 | P.PN ---
Progress Note - Text Progress Note Date: 12/30/18 IDENTIFICATION DATA: 68-year-old male admitted to the mental health unit through the emergency room for suicidal ideation. INTERVAL HISTORY: Patient was seen today, He says he is glad that he is able to stay lucid given his history of alcoholism as he thought he might have lost most his abilities due to his chronic alcohol use. He is happy to have had a good phone conversation with is daughter. He is happy that his medications are working well for him and denies side effects. Reports good sleep and appetite. MENTAL STATUS EXAMINATION: 68 year old male appears in fair grooming and hygine. Is alert and oriented 4. Mood is reported as good and affect is constricted. Speech and thought processes linear and goal directed. thought content is negative for suicidal or homicidal ideation. Denies auditory and visual hallucinations. insight and judgment are improving. ASSESSMENT Major depressive disorder recurrent severe without psychosis Alcohol use disorder PLAN: Effexor XR increased from 37.5 mg to 75mg po daily for depressive and anxiety symptoms Trazadone 50mg for insomnia Wants to resume antabuse for alcoholism when he goes home Patient continues to meet criteria for inpatient treatment of depression
[2018-12-30] MEDS: traZODone HCL 50 MG TAB PO SCH (21:43)
[2018-12-31 06:58] VITALS: BP 119/66; PULSE 80; RESP 16; TEMP 97.9
[2018-12-31] MEDS: VENLAFAXINE HCL ER 75 MG CAP PO SCH (08:58)
--- NOTE | 2018-12-31 09:24 | P.DS ---
Providers Date of admission: 12/24/18 22:52 Expected date of discharge: 12/31/18 Attending physician: Saran Bailey Consults: 12/24/18 23:39 Consult Physician Routine Consulting Provider: Alok Physician Consult Reason/Comments: H&P and medical Do you want consulting provider notified?: Yes Primary care physician: Yoli Samayoa - Discharge Diagnosis(es) (1) Major depressive disorder, recurrent severe without psychotic features Current Visit: Yes Status: Acute Priority: High (2) Alcohol use disorder Current Visit: Yes Status: Acute Priority: High Hospital Course: Brief summary of admission note: This patient is a 68-year-old male who was admitted to the mental health unit through the emergency room for suicidal ideation. He was with friends they called 911 as they were concerned for his safety. He was intoxicated with alcohol and had cut himself on his arm and his neck. He reported having thoughts of jumping into the [facility] [place]. He was feeling hopeless. He reported his symptoms of depression continued to worsen over the recent weeks. He has a long history of alcohol use disorder and continues to relapse. For full details please refer to my psychiatric evaluation dated 12/25/2018. Summary of hospital course: The patient was admitted to the mental health unit voluntarily. We reviewed his presenting symptoms and treatment options. We decided to initiate Effexor XR for depressive and anxiety symptoms. Trazodone was used at night for sleep. The patient was seen by internal medicine for routine history and physical exam. Social work met with the patient to complete a psychosocial assessment and begin discharge planning. We discussed the possibility of attending inpatient chemical dependency treatment but he declined. We did attempt to initiate naltrexone but after 1 dose he stated he could not tolerate the side effects. During the course of his stay he has reported a progressive improvement of symptoms while here. He states the weekend went very well he feels hopeful. He has had some phone contact with his youngest daughter and that was supportive. 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 Mental status exam: The patient is a thin male he stressors unclothing hygiene grooming adequate. Speech is fluent spontaneous nonpressured. He reports his mood is good. He states he no longer feels hopeless. He reports no suicidal ideation intent or plan. He reports no homicidal ideation intent or plan. He reports no auditory or visual hallucinations or any specific delusions. There is no observed evidence of psychosis. He demonstrates no tangential thinking lose associations or flight of ideas. He does not appear hypomanic or manic. Insight and judgment have improved. Affect is appropriately expressive and he demonstrates appropriate smiling. He demonstrates no verbal or physical aggressiveness. Again he spontaneously describes future oriented thinking. Impressions 1. Major depressive disorder recurrent severe without psychosis, alcohol use disorder Plan: The patient will be discharged mental health unit today to return to his apartment. Social work will arrange his outpatient mental health follow-up. We will also attempt to arrange a support meeting prior to discharge. This may need to occur via phone. He will continue on Effexor XR 75 mg daily trazodone 50 mg at bedtime. He could not tolerate the naltrexone that we tried while here on the mental health unit. He states that his physician just prescribe him Antabuse and he plans to take that when he returns home. He defers going to inpatient chemical dependency treatment. We discussed that he needs to attend AA meetings daily. It's recommended that he follow up with a therapist weekly. He is instructed to abstain from alcohol or any other substance as this will exacerbate his mood symptoms and elevate his safety risk. At this time there is no imminent safety risk is appropriate for transition outpatient care. He is instructed to return to the hospital with any acute safety concerns. Patient Condition at Discharge: Stable Plan - Discharge Summary Discharge Rx Participant: No New Discharge Prescriptions: New traZODone HCL [Desyrel] 50 mg PO HS #30 tab Venlafaxine HCl ER [Effexor XR] 75 mg PO DAILY #30 cap.er.24h Discharge Medication List Venlafaxine HCl ER [Effexor XR] 75 mg PO DAILY #30 cap.er.24h 12/31/18 [Rx] traZODone HCL [Desyrel] 50 mg PO HS #30 tab 12/31/18 [Rx] Follow up Appointment(s)/Referral(s): Yoli Samayoa MD [Primary Care Provider] - 1-2 days
== END 2018-12-31 14:19 | disposition home or self-care (01) | DRG 885 ==
LOC: EC 20:18 → 3MHU 22:52
PROVIDERS: ADMIT Psychiatry & Neurology Psychiatry; ATTEND Psychiatry & Neurology Psychiatry
DX: F33.2 Major depressive disorder, recurrent severe without psychotic features (principal); R45.851 Suicidal ideations; S21.119A Laceration without foreign body of unspecified front wall of thorax without penetration into thoracic cavity, initial encounter; F10.20 Alcohol dependence, uncomplicated; Z60.2 Problems related to living alone; R74.0 Nonspecific elevation of levels of transaminase and lactic acid dehydrogenase [LDH]; D69.59 Other secondary thrombocytopenia; F41.9 Anxiety disorder, unspecified; Z88.6 Allergy status to analgesic agent; S11.81XA Laceration without foreign body of other specified part of neck, initial encounter; S61.512A Laceration without foreign body of left wrist, initial encounter; S61.511A Laceration without foreign body of right wrist, initial encounter; X78.9XXA Intentional self-harm by unspecified sharp object, initial encounter
CPT/HCPCS: 80053; 80061; 80306; 81001; 82075; 83036; 84443; 85025; 99285